=== PATIENT | male | born 1955 | race Native Hawaiian/Other Pacific Islander ===

== ENCOUNTER 2020-06-01 14:28 | Outpatient (CLI) | payer OTHER | END 2020-06-01 20:16 | disposition home or self-care (01) | LOC: INF 14:28 | PROVIDERS: ATTEND Internal Medicine | DX: Z23 Encounter for immunization (principal) | CPT/HCPCS: 96372 ==

== ENCOUNTER 2020-07-06 09:12 | Outpatient (CLI) | payer OTHER | END 2020-07-06 19:08 | disposition home or self-care (01) | LOC: INF 09:12 | PROVIDERS: ATTEND Internal Medicine | DX: Z23 Encounter for immunization (principal) | CPT/HCPCS: 96372 ==

== ENCOUNTER 2021-10-27 08:58 | Outpatient (CLI) | payer OTHER | END 2021-10-27 19:40 | disposition home or self-care (01) | LOC: US 08:58 | PROVIDERS: ATTEND Internal Medicine | DX: R09.89 Other specified symptoms and signs involving the circulatory and respiratory systems (principal); R60.0 Localized edema; R53.1 Weakness; I20.9 Angina pectoris, unspecified ==